=== PATIENT | male | born 1945 | race Asian ===

== ENCOUNTER 2020-09-28 15:07 | Emergency (ER) | payer OTHER ==
[2020-09-28 15:23] VITALS: BP 112/73; PULSE 79; TEMP 98.1; BMI 24.5
[2020-09-28 17:37] LABS: EOS % 1.5 % (0-4.5); HEMATOCRIT 47.2 % (35.4-49); HEMOGLOBIN 15.8 GM/dl (11.7-16.9); LYMPH % 22.3 % (8-40); MCH 31.8 pg (25.7-33.7); MCHC 33.5 g/dl (32.0-35.9); MEAN CELL VOLUME 94.9 fl (80-96); MEAN PLT VOLUME 8.7 fl (7.5-11.1); MONO % 8.9 % (3.8-10.2); NEUT % 64.3 % (42.8-82.8); PLATELET COUNT 174 K/MM3 (134-434); RBC 4.97 M/mm3 (4.00-5.60); RDW 12.7 % (11.9-15.9); WHITE BLOOD COUNT 6.7 K/mm3 (4.0-10.8)
[2020-09-28 17:53] LABS: ALK PHOS 75 U/L (45-117); ANION GAP 3 MMOL/L (8-16); CALCIUM 8.6 mg/dl (8.5-10); CHLORIDE 107 mmol/L (98-107); CO2 25 mmol/L (21-32); CREATININE 0.8 mg/dl (0.55-1.3); GLUCOSE,RANDOM 93 mg/dl (74-106); SGOT/AST 24 U/L (15-37); SGPT/ALT 26 U/L (13-61); SODIUM 135 mmol/L (136-145); TOT PROT 6.5 g/dl (6.4-8.2)
[2020-09-28 17:54] LABS: ACTIVATED PTT 26.6 SECONDS (25.2-36.5)
[2020-09-28 17:58] LABS: INR 1.08 (0.82-1.09)
== END 2020-09-28 19:08 | disposition home or self-care (01) ==
LOC: FER 15:07
DX: N21.0 Calculus in bladder (principal)
CPT/HCPCS: 36415; 74176-TC; 80053; 81003; 81015; 84484; 85025; 85610; 85730; 86850; 86900; 86901; 87086; 99284-25

== ENCOUNTER 2020-11-11 14:33 | Emergency (ER) | payer OTHER ==
[2020-11-11 14:47] VITALS: BMI 23.5
[2020-11-11] MEDS ORDERED: ACETAMINOPHEN 500 MG TABLET (FP) PO ONE (15:25)
[2020-11-11] MEDS ORDERED: ACETAMINOPHEN 500 MG TABLET (FP) ONE (15:31)
[2020-11-11 15:44] LABS: HEMATOCRIT 37.5 % (35.4-49); HEMOGLOBIN 12.9 GM/dl (11.7-16.9); MCH 31.6 pg (25.7-33.7); MCHC 34.3 g/dl (32.0-35.9); MEAN CELL VOLUME 92.1 fl (80-96); MEAN PLT VOLUME 7.8 fl (7.5-11.1); PLATELET COUNT 88 10^3/uL (134-434); RBC 4.07 M/mm3 (4.00-5.60); RDW 13.8 % (11.9-15.9); WHITE BLOOD COUNT 6.5 K/mm3 (4.0-10.8)
[2020-11-11 15:51] LABS: ALBUMIN 3.4 g/dl (3.4-5.0); BILIRUBIN,TOTAL 3.1 mg/dl (0.2-1); CREATININE 0.8 mg/dl (0.55-1.3); TOT PROT 6.6 g/dl (6.4-8.2)
[2020-11-11 21:55] VITALS: BP 119/74; PULSE 100; TEMP 99.4
== END 2020-11-11 22:10 | disposition home or self-care (01) ==
LOC: FER 14:33
DX: R50.9 Fever, unspecified (principal); R74.01 Elevation of levels of liver transaminase levels; R63.0 Anorexia
CPT/HCPCS: 36415; 71045-TC-FY; 74177-TC; 76700-TC; 80053; 81003; 81015; 83690; 85025; 87040; 87086; 87804; 99285-25; C9803; Q9967; U0003; U0005

== ENCOUNTER 2021-07-27 04:06 | Day surgery (SDC) | payer OTHER ==
[2021-07-26 09:36] VITALS: BMI 25.0
[2021-07-27] MEDS ORDERED: PROMETHAZINE HCL 25 MG/1 ML VIAL IVPUSH PRN (07:10)
[2021-07-27] MEDS ORDERED: ONDANSETRON 4 MG/2 ML VIAL IVPUSH PRN (07:10)
[2021-07-27] MEDS ORDERED: oxyCODONE HCL 5 MG TABLET PO PRN ×2 (07:10→07:59)
[2021-07-27] MEDS ORDERED: LACTATED RINGERS SOLUTION 1,000 ML IV SCH (07:15)
[2021-07-27] MEDS ORDERED: PROPOFOL 20 ML ONE ×2 (07:26)
[2021-07-27] MEDS ORDERED: ceFAZolin SODIUM 1 GM VIAL ONE (07:29)
[2021-07-27] MEDS ORDERED: SODIUM CHLORIDE 0.9% P/F 10 ML VIAL IJ ONE (07:29)
[2021-07-27] MEDS ORDERED: LIDOCAINE HCL/PF 2% SDV 5ML VIAL ONE (07:29)
[2021-07-27] MEDS ORDERED: DEXAMETHASONE SOD PHOSPHATE 4 MG/1 ML VIAL ONE (07:29)
[2021-07-27] MEDS ORDERED: ceFAZolin SODIUM 1 GM VIAL IVPB ONE (07:38)
[2021-07-27] MEDS ORDERED: ELECTROLYTE-148 SOLN 1,000 ML IV SCH (08:00)
[2021-07-27 10:02] VITALS: TEMP 97.8
[2021-07-27 12:06] VITALS: BP 130/80; PULSE 78
== END 2021-07-27 11:00 | disposition home or self-care (01) ==
LOC: JASU-SURG 04:06
PROVIDERS: ATTEND Urology
PROC: 0TCB8ZZ Extirpation of Matter from Bladder, Via Natural or Artificial Opening Endoscopic (ICD-10-PCS; principal; 2021-07-27 07:30)
DX: N21.0 Calculus in bladder (principal)
CPT/HCPCS: 36415; 82360; 88300-TC; 94760

== ENCOUNTER 2023-01-08 06:52 | Emergency (ER) | payer OTHER ==
[2023-01-08 07:16] VITALS: BMI 25.0
[2023-01-08] MEDS ORDERED: ACETAMINOPHEN 1000 MG/100 ML BAG IVPB ONE (07:31)
[2023-01-08] MEDS ORDERED: SODIUM CHLORIDE 0.9% 500 ML INFUS.BAG IV ONE (07:31)
[2023-01-08] MEDS ORDERED: ACETAMINOPHEN INJECTION 100 ML IVPB ONE (07:33)
[2023-01-08 08:25] LABS: HEMATOCRIT 48.3 % (35.4-49); HEMOGLOBIN 16.3 G/dL (11.7-16.9); MCHC 33.7 g/dl (32.0-35.9); MEAN CELL VOLUME 95.1 fl (80-96); MEAN PLT VOLUME 8.9 fl (7.5-11.1); PLATELET COUNT 140.1 10^3/uL (134-434); RBC 5.08 10^6/uL (4.00-5.60); RDW 13.9 % (11.9-15.9); WHITE BLOOD COUNT 16.7 10^3/uL (4.0-10.8)
[2023-01-08 08:27] LABS: ALBUMIN 4.1 g/dl (3.4-5.0); BILIRUBIN,TOTAL 1.3 mg/dl (0.2-1); BLOOD UREA NITROGEN 12.5 mg/dl (7-18); CALCIUM 8.9 mg/dl (8.5-10.1); CREATININE 0.8 mg/dl (0.6-1.3); POTASSIUM 3.7 mmol/L (3.5-5.1); SGOT/AST 18.4 U/L (15-37); TOT PROT 6.2 g/dl (6.4-8.2)
[2023-01-08 08:46] LABS: PLATELET ESTIMATE ADEQUATE
[2023-01-08 09:29] VITALS: TEMP 98
[2023-01-08] MEDS ORDERED: morphine CARPU-JECT 4 MG/1 ML DISP.SYRIN IVPUSH ONE ×2 (10:32→11:13)
[2023-01-08] MEDS ORDERED: morphine SULFATE 4 MG/ML VIAL ONE ×2 (10:33→11:21)
[2023-01-08 11:50] VITALS: BP 110/60; PULSE 97
[2023-01-08 13:48] VITALS: RESP 19
== END 2023-01-08 14:01 | disposition home or self-care (01) ==
LOC: FER 06:52
PROC: 3E033NZ Introduction of Analgesics, Hypnotics, Sedatives into Peripheral Vein, Percutaneous Approach (ICD-10-PCS; principal; 2023-01-08)
PROC: 3E033GC Introduction of Other Therapeutic Substance into Peripheral Vein, Percutaneous Approach (ICD-10-PCS; 2023-01-08)
PROC: 3E033GC Introduction of Other Therapeutic Substance into Peripheral Vein, Percutaneous Approach (ICD-10-PCS; 2023-01-08)
DX: R10.13 Epigastric pain (principal); R61 Generalized hyperhidrosis; K52.9 Noninfective gastroenteritis and colitis, unspecified; Z20.822 Contact with and (suspected) exposure to COVID-19
CPT/HCPCS: 0241U-QW; 36415; 71045-TC-FY; 74177-TC; 76705-TC; 80053; 81003; 83690; 83735; 83880; 84484; 85025; 87086; 93005; 99285-25; Q9967